=== PATIENT | female | born 1990 | race Caucasian/White ===

== ENCOUNTER 2019-03-30 19:28 | Emergency (ER) | payer SELFPAY ==
[2019-03-30] MEDS ORDERED: traMADol HCl 50 MG TAB ONE (19:54)
[2019-03-30] MEDS ORDERED: Amoxicillin/Potassium Clav 875 MG TAB ONE (19:55)
== END 2019-03-30 20:04 | disposition home or self-care (01) ==
LOC: NAV ERS 19:28
DX: K03.81 Cracked tooth (principal); K02.9 Dental caries, unspecified; F17.210 Nicotine dependence, cigarettes, uncomplicated
CPT/HCPCS: 99283

== ENCOUNTER 2019-12-30 18:20 | Emergency (ER) | payer OTHER ==
[2019-12-30] MEDS ORDERED: traMADol HCl 50 MG TAB ONE (18:48)
== END 2019-12-30 18:52 | disposition home or self-care (01) ==
LOC: NAV ERS 18:20
DX: K04.4 Acute apical periodontitis of pulpal origin (principal)
CPT/HCPCS: 99282